=== PATIENT | female | born 1960 ===

== ENCOUNTER 2018-05-12 15:23 | Inpatient (IN) | payer OTHER ==
[~2018-05-12] VITALS: Ht 152.4 cm; Wt 59.9 kg
[~2018-05-12 15:23] MED LIST: KETO10TA2 PO
[2018-06-03] MEDS ORDERED: LANSOPRAZOLE30 MG PO (08:26)
[2018-06-03] MEDS ORDERED: FLUOXETINE PO (08:27)
[2018-06-03] MEDS ORDERED: FOLIC ACID1 MG PO (08:27)
[2018-06-03] MEDS ORDERED: PREDNISONE2.5 MG PO (08:28)
[2018-06-03] MEDS ORDERED: ATORVASTATIN CA10 MG PO (08:28)
[2018-06-03] MEDS ORDERED: HYDROXYCHLOROQUINE PO (08:29)
[2018-06-03] MEDS ORDERED: METHOTREXA25 MG/1 M1 IJ (08:30)
== END 2018-06-12 17:16 | DRG 470 ==
LOC: SURH 06-10 08:00 → SURG 06-10 10:33 → O/R 06-10 10:33 → SURG 06-10 17:25 → SURH 06-10 17:30 → SURG 06-12 17:16
PROVIDERS: Orthopaedic Surgery
PROC: 0SRC0J9 Replacement of Right Knee Joint with Synthetic Substitute, Cemented, Open Approach (ICD-10-PCS; principal; 2018-06-10 17:30)
DX: M17.11 Unilateral primary osteoarthritis, right knee (principal); D62 Acute posthemorrhagic anemia; I10 Essential (primary) hypertension; M06.89 Other specified rheumatoid arthritis, multiple sites; M32.8 Other forms of systemic lupus erythematosus